=== PATIENT | female | born 1940 | race Caucasian/White ===

== ENCOUNTER 2016-09-27 19:03 | Inpatient (IN) | payer MEDICARE ==
[~2016-09-27] VITALS: Ht 160 cm; Wt 58.1 kg
[2016-09-27 19:33] LABS: BASOPHILS % (AUTO) 0.7 % (0.0-2.0); EOSINOPHILS # (AUTO) 0.2 /CMM (0.0-0.7); EOSINOPHILS % (AUTO) 3.1 % (0.0-6.0); HEMATOCRIT 42 % (33-45); LYMPHOCYTES # (AUTO) 2.6 /CMM (0.8-4.8); LYMPHOCYTES % (AUTO) 40.6 % (20.0-44.0); MEAN CORPUSCULAR HEMOGLOBIN 30 PG (26.0-33.0); MEAN CORPUSCULAR HGB CONC 34 g/dl (31.0-36.0); MEAN CORPUSCULAR VOLUME 89 fL (82-100); MONOCYTES # (AUTO) 0.6 /CMM (0.1-1.30); MONOCYTES % (AUTO) 8.9 % (2.0-12.0); NEUTROPHILS % (AUTO) 46.7 % (43.0-81.0); PLATELET COUNT (AUTO) 347 /CMM (150-450); RDW COEFFICIENT OF VARIATION 12.4 (11.5-15.0); WHITE BLOOD COUNT (AUTO) 6.4 K/uL (4.3-11.0)
[2016-09-27 19:43] LABS: ALANINE AMINOTRANSFERASE 27 U/L (12-78); ALBUMIN 3.8 g/dL (3.4-5.0); ALCOHOL, BLOOD < 3 mg/dL (0-0); ALKALINE PHOSPHATASE 78 U/L (46-116); ASPARTATE AMINOTRANSFERASE 22 U/L (15-37); BILIRUBIN,DIRECT 0.1 mg/dL (0.0-0.2); BILIRUBIN,TOTAL 0.3 mg/dL (0.2-1.0); CALCIUM, SERUM 9.1 mg/dL (8.5-10.1); CARBON DIOXIDE 30 mmol/L (21-32); CHLORIDE 104 mmol/L (98-107); CREATININE 0.8 mg/dL (0.6-1.3); GLUCOSE 118 mg/dL (74-106); POTASSIUM 3.8 mmol/L (3.5-5.1); SALICYLATE 2.9 mg/dL (2.8-20.0); SODIUM SERUM 139 mmol/L (136-145); TOTAL PROTEIN, SERUM 7.4 g/dL (6.4-8.2); UREA NITROGEN, BLOOD 22 mg/dL (7-18)
[2016-09-27 20:13] LABS: ACETAMINOPHEN 0 ug/ml (10-30)
[2016-09-27 20:31] LABS: APPEARANCE,URINE Clear (CLEAR); BILIRUBIN,URINE SMALL (NEGATIVE); BLOOD, URINE Negative Ery/uL (NEGATIVE); COLOR,URINE Yellow (YELLOW); KETONES,URINE Trace (NEGATIVE); LEUKOCYTE ESTERASE ,URINE Negative (NEGATIVE); NITRITE, URINE Negative (NEGATIVE); PROTEIN,URINE 30 mg/dl (NEGATIVE); UGLUCOSE Negative (NEGATIVE); UROBILINOGEN,URINE 0.2 EU/dL (0.2)
[2016-09-27 21:32] LABS: RBC,URINE 0-2 /HPF (0-2)
[2016-09-27 21:33] LABS: BACTERIA,URINE Few /HPF (None Seen); MUCUS,URINE Moderate /LPF (None Seen); SQUAMOUS EPITHELIAL CELL,UR Few /HPF (None Seen); URINE AMORPHOUS URATE Moderate /HPF (None Seen); WBC,URINE 2-3/HPF /HPF (0-3)
[2016-09-27] MEDS ORDERED: MAGNESIUM HYDROXIDE 30 ML UDC PO PRN (23:00)
[2016-09-27] MEDS ORDERED: MAG HYDROX/AL HYDROX/SIMETH 30 ML UDC PO PRN (23:00)
[2016-09-27] MEDS ORDERED: clonazePAM 0.5 MG TABLET PO PRN (23:00)
[2016-09-27] MEDS ORDERED: HYDR-3028 (23:56)
[2016-09-27] MEDS ORDERED: AMLO10TA4 (23:56)
[2016-09-27] MEDS ORDERED: PANT40TA4 (23:56)
[2016-09-27] MEDS ORDERED: ONDA-25 (23:56)
[2016-09-27] MEDS ORDERED: METO25TA6 (23:56)
[2016-09-27] MEDS ORDERED: HYDR50CA5 (23:56)
[2016-09-27] MEDS ORDERED: AMLO5TAB2 (23:56)
[2016-09-27] MEDS ORDERED: AMLO10TA2 (23:56)
[2016-09-27] MEDS ORDERED: ACET1TAB25 (23:56)
[2016-09-28] MEDS ORDERED: BUDE10.2 INH (00:06)
[2016-09-28] MEDS ORDERED: AMOX1TAB16 (00:06)
[2016-09-28] MEDS ORDERED: P-EP-92 PO (00:06)
[2016-09-28] MEDS ORDERED: ONDANSETRON 4 MG TAB.RAPDIS PO PRN (00:30)
[2016-09-28 02:27] VITALS: BP 114/56
[2016-09-28 07:26] LABS: CREATININE 0.6 mg/dL (0.6-1.3)
[2016-09-28 07:31] LABS: CHOLESTEROL 240 mg/dL (<200); HDL CHOLESTEROL 54 mg/dL (40-60); LDL 164 mg/dL (0-99); TRIGLYCERIDES 62 mg/dL (30-150)
[2016-09-28 08:12] VITALS: BP 128/73
[2016-09-28] MEDS: METOPROLOL TARTRATE 25 MG TABLET PO SCH ×2 (08:52→17:00)
[2016-09-28] MEDS: AMLODIPINE BESYLATE 10 MG TABLET PO SCH (08:52)
[2016-09-28] MEDS: PANTOPRAZOLE 40 MG TABLET.DR PO SCH (08:55)
[2016-09-28] MEDS: ACETAMINOPHEN 325 MG TABLET PO PRN (08:57)
[2016-09-28] MEDS ORDERED: Medication Not On Formulary EA (Budesonide/Formoterol Fumarate (Symbicort 160-4.5 Mcg In INH SCH (09:00)
[2016-09-28] MEDS: ACETAMINOPHEN W/ CODEINE#3 1 EA TABLET PO PRN ×2 (13:57→22:35)
[2016-09-28 15:43] VITALS: BP 119/55
[2016-09-28 20:00] VITALS: BP 134/61
[2016-09-28 20:17] VITALS: BP 134/61
[2016-09-28] MEDS: FLUTICASONE/SALMETEROL 1 DISK IH SCH (21:26)
[2016-09-28] MEDS: ARIPIPRAZOLE 5 MG TABLET PO SCH ×2 (21:26→21:30)
[2016-09-29] MEDS: ACETAMINOPHEN 325 MG TABLET PO PRN (03:39)
[2016-09-29] MEDS: ACETAMINOPHEN W/ CODEINE#3 1 EA TABLET PO PRN ×2 (05:14→14:40)
[2016-09-29 08:17] VITALS: BP 139/71
[2016-09-29] MEDS: AMLODIPINE BESYLATE 10 MG TABLET PO SCH (08:34)
[2016-09-29] MEDS: METOPROLOL TARTRATE 25 MG TABLET PO SCH ×2 (08:34→16:09)
[2016-09-29] MEDS: PANTOPRAZOLE 40 MG TABLET.DR PO SCH (08:34)
[2016-09-29] MEDS: FLUTICASONE/SALMETEROL 1 DISK IH SCH ×2 (08:35→20:44)
[2016-09-29 15:32] VITALS: BP 124/53
[2016-09-29 20:00] VITALS: BP 114/63
[2016-09-29] MEDS: hydrOXYzine PAMOATE 25 MG CAPSULE PO PRN (20:49)
[2016-09-29] MEDS: ARIPIPRAZOLE 5 MG TABLET PO SCH (20:50)
[2016-09-30] MEDS: ACETAMINOPHEN W/ CODEINE#3 1 EA TABLET PO PRN ×2 (01:47→17:38)
[2016-09-30 08:08] VITALS: BP 110/62
[2016-09-30] MEDS: PANTOPRAZOLE 40 MG TABLET.DR PO SCH (08:52)
[2016-09-30] MEDS: AMLODIPINE BESYLATE 10 MG TABLET PO SCH (08:53)
[2016-09-30] MEDS: METOPROLOL TARTRATE 25 MG TABLET PO SCH ×2 (08:53→17:00)
[2016-09-30] MEDS: FLUTICASONE/SALMETEROL 1 DISK IH SCH ×2 (09:16→21:12)
[2016-09-30 16:16] VITALS: BP 102/57
[2016-09-30 20:00] VITALS: BP 120/57
[2016-09-30] MEDS: hydrOXYzine PAMOATE 25 MG CAPSULE PO PRN (21:17)
[2016-09-30] MEDS: ARIPIPRAZOLE 5 MG TABLET PO SCH (21:19)
[2016-10-01 08:00] VITALS: BP 131/58
[2016-10-01] MEDS: PANTOPRAZOLE 40 MG TABLET.DR PO SCH (08:12)
[2016-10-01] MEDS: FLUTICASONE/SALMETEROL 1 DISK IH SCH ×2 (08:14→21:24)
[2016-10-01] MEDS: ACETAMINOPHEN W/ CODEINE#3 1 EA TABLET PO PRN ×2 (09:38→16:51)
[2016-10-01] MEDS: AMLODIPINE BESYLATE 10 MG TABLET PO SCH (09:49)
[2016-10-01] MEDS: METOPROLOL TARTRATE 25 MG TABLET PO SCH ×2 (09:49→17:33)
[2016-10-01 16:00] VITALS: BP 147/66
[2016-10-01 20:23] VITALS: BP 128/50
[2016-10-01] MEDS: ARIPIPRAZOLE 5 MG TABLET PO SCH (21:24)
[2016-10-01] MEDS: hydrOXYzine PAMOATE 25 MG CAPSULE PO PRN (21:29)
[2016-10-02] MEDS: ACETAMINOPHEN W/ CODEINE#3 1 EA TABLET PO PRN ×4 (03:23→23:17)
[2016-10-02 08:00] VITALS: BP 126/50
[2016-10-02] MEDS: PANTOPRAZOLE 40 MG TABLET.DR PO SCH (08:30)
[2016-10-02] MEDS: AMLODIPINE BESYLATE 10 MG TABLET PO SCH (08:30)
[2016-10-02] MEDS: METOPROLOL TARTRATE 25 MG TABLET PO SCH ×2 (08:31→16:34)
[2016-10-02] MEDS: FLUTICASONE/SALMETEROL 1 DISK IH SCH ×2 (08:35→21:31)
[2016-10-02 16:00] VITALS: BP 120/56
[2016-10-02 20:00] VITALS: BP 121/62
[2016-10-02 21:00] VITALS: BP 128/66
[2016-10-02] MEDS ORDERED: ARIPIPRAZOLE 5 MG TABLET PO SCH (22:00)
[2016-10-03] MEDS: TEMAZEPAM 7.5 MG CAPSULE PO PRN (01:25)
[2016-10-03] MEDS: hydrOXYzine PAMOATE 25 MG CAPSULE PO PRN ×2 (07:05→21:34)
[2016-10-03 08:00] VITALS: BP 122/60
[2016-10-03] MEDS: PANTOPRAZOLE 40 MG TABLET.DR PO SCH (08:42)
[2016-10-03] MEDS: AMLODIPINE BESYLATE 10 MG TABLET PO SCH (08:45)
[2016-10-03] MEDS: METOPROLOL TARTRATE 25 MG TABLET PO SCH ×2 (08:45→17:00)
[2016-10-03] MEDS: FLUTICASONE/SALMETEROL 1 DISK IH SCH ×2 (08:48→21:28)
[2016-10-03] MEDS: ACETAMINOPHEN W/ CODEINE#3 1 EA TABLET PO PRN ×2 (12:46→18:54)
[2016-10-03 15:48] LABS: CALCIUM, SERUM 9.1 mg/dL (8.5-10.1); CARBON DIOXIDE 29 mmol/L (21-32); CHLORIDE 103 mmol/L (98-107); CREATININE 0.7 mg/dL (0.6-1.3); GLUCOSE 109 mg/dL (74-106); POTASSIUM 4.4 mmol/L (3.5-5.1); SODIUM SERUM 139 mmol/L (136-145); UREA NITROGEN, BLOOD 21 mg/dL (7-18)
[2016-10-03 15:57] LABS: BASOPHILS % (AUTO) 0.4 % (0.0-2.0); EOSINOPHILS # (AUTO) 0.2 /CMM (0.0-0.7); EOSINOPHILS % (AUTO) 3.5 % (0.0-6.0); HEMATOCRIT 41 % (33-45); HEMOGLOBIN 13.8 g/dL (11.5-14.8); LYMPHOCYTES # (AUTO) 1.8 /CMM (0.8-4.8); MEAN CORPUSCULAR HEMOGLOBIN 31 PG (26.0-33.0); MEAN CORPUSCULAR HGB CONC 34 g/dl (31.0-36.0); MEAN CORPUSCULAR VOLUME 90 fL (82-100); MONOCYTES # (AUTO) 0.6 /CMM (0.1-1.30); MONOCYTES % (AUTO) 8.8 % (2.0-12.0); NEUTROPHILS # (AUTO) 3.8 /CMM (1.8-8.9); NEUTROPHILS % (AUTO) 59.3 % (43.0-81.0); PLATELET COUNT (AUTO) 382 /CMM (150-450); RDW COEFFICIENT OF VARIATION 13.7 (11.5-15.0); RED BLOOD CELL COUNT(AUTO) 4.51 MIL/uL (4.0-5.2); WHITE BLOOD COUNT (AUTO) 6.4 K/uL (4.3-11.0)
[2016-10-03 16:00] VITALS: BP 105/50
[2016-10-03 17:26] LABS: APPEARANCE,URINE CLEAR (CLEAR); BILIRUBIN,URINE NEGATIVE (NEGATIVE); BLOOD, URINE NEGATIVE Ery/uL (NEGATIVE); COLOR,URINE YELLOW (YELLOW); KETONES,URINE NEGATIVE (NEGATIVE); LEUKOCYTE ESTERASE ,URINE NEGATIVE (NEGATIVE); NITRITE, URINE NEGATIVE (NEGATIVE); PROTEIN,URINE NEGATIVE (NEGATIVE); UGLUCOSE NEGATIVE (NEGATIVE); UROBILINOGEN,URINE 0.2 EU/dL (0.2)
[2016-10-03 21:02] VITALS: BP 129/58
[2016-10-03] MEDS ORDERED: ARIPIPRAZOLE 5 MG TABLET PO SCH (22:00)
[2016-10-04] MEDS: TEMAZEPAM 7.5 MG CAPSULE PO PRN (02:37)
[2016-10-04] MEDS: ACETAMINOPHEN W/ CODEINE#3 1 EA TABLET PO PRN ×2 (04:07→10:34)
[2016-10-04 08:00] VITALS: BP 139/76
[2016-10-04] MEDS: PANTOPRAZOLE 40 MG TABLET.DR PO SCH (08:17)
[2016-10-04 08:18] VITALS: BP 139/76
[2016-10-04] MEDS: METOPROLOL TARTRATE 25 MG TABLET PO SCH (08:18)
[2016-10-04] MEDS: AMLODIPINE BESYLATE 10 MG TABLET PO SCH (08:18)
[2016-10-04] MEDS: FLUTICASONE/SALMETEROL 1 DISK IH SCH (08:20)
[2016-10-04] MEDS ORDERED: ARIPIPRAZOLE 5 MG TABLET PO SCH (22:00)
== END 2016-10-04 14:15 | DRG 885 ==
LOC: ER 19:07 → GPS 22:02
PROVIDERS: ADMIT Psychiatry & Neurology Psychiatry; ATTEND Family Medicine
DX: F29 Unspecified psychosis not due to a substance or known physiological condition (principal); E78.5 Hyperlipidemia, unspecified; I10 Essential (primary) hypertension; J44.9 Chronic obstructive pulmonary disease, unspecified; Z73.6 Limitation of activities due to disability; M06.9 Rheumatoid arthritis, unspecified; Z86.19 Personal history of other infectious and parasitic diseases
CPT/HCPCS: 36415; 80048-TC; 80061-TC; 80076-TC; 80305; 81000-TC; 82565-TC; 82962-TC; 85025-TC; 85652-TC; 87081-TC; A4606; G0480; Q0177; Z7610

== ENCOUNTER 2016-10-10 14:23 | Inpatient (IN) | payer MEDICARE ==
[~2016-10-10] VITALS: Ht 172.7 cm; Wt 54.4 kg
[~2016-10-10 14:23] MED LIST: ACET1TAB25; AMLO10TA2 PO; AMOX1TAB16; BUDE10.2 INH; HYDR-3028; METO25TA6 PO; ONDA-25; P-EP-92 PO; PANT40TA4
--- NOTE | 2016-10-10 14:38 | NUR ---
PT BIB PA FOR MED CLEARANCE. ON 515 HOLD FOR GD. DENIES PHYSICAL COMPLAINT. AMBULATORY WITH WALKER WHICH IS BASELINE. NAD NOTED. RESP EVEN UNLABORED. IN ER BED 14.
[2016-10-10 14:51] LABS: BASOPHILS # (AUTO) 0.1 /CMM (0.0-0.2); BASOPHILS % (AUTO) 1.1 % (0.0-2.0); EOSINOPHILS # (AUTO) 0.3 /CMM (0.0-0.7); EOSINOPHILS % (AUTO) 4.1 % (0.0-6.0); HEMATOCRIT 40 % (33-45); HEMOGLOBIN 13.6 g/dL (11.5-14.8); LYMPHOCYTES # (AUTO) 1.9 /CMM (0.8-4.8); LYMPHOCYTES % (AUTO) 26.7 % (20.0-44.0); MEAN CORPUSCULAR HEMOGLOBIN 30 PG (26.0-33.0); MEAN CORPUSCULAR HGB CONC 34 g/dl (31.0-36.0); MEAN CORPUSCULAR VOLUME 90 fL (82-100); MONOCYTES # (AUTO) 0.6 /CMM (0.1-1.30); MONOCYTES % (AUTO) 8.6 % (2.0-12.0); NEUTROPHILS # (AUTO) 4.2 /CMM (1.8-8.9); NEUTROPHILS % (AUTO) 59.5 % (43.0-81.0); PLATELET COUNT (AUTO) 399 /CMM (150-450); RDW COEFFICIENT OF VARIATION 12.3 (11.5-15.0); RED BLOOD CELL COUNT(AUTO) 4.46 MIL/uL (4.0-5.2); WHITE BLOOD COUNT (AUTO) 7.1 K/uL (4.3-11.0)
[2016-10-10 15:03] LABS: CALCIUM, SERUM 9.1 mg/dL (8.5-10.1); CARBON DIOXIDE 30 mmol/L (21-32); CHLORIDE 107 mmol/L (98-107); CREATININE 0.7 mg/dL (0.6-1.3); GLUCOSE 131 mg/dL (74-106); SODIUM SERUM 144 mmol/L (136-145); UREA NITROGEN, BLOOD 27 mg/dL (7-18)
[2016-10-10 15:08] LABS: ALANINE AMINOTRANSFERASE 24 U/L (12-78); ALBUMIN 3.7 g/dL (3.4-5.0); ALKALINE PHOSPHATASE 78 U/L (46-116); ASPARTATE AMINOTRANSFERASE 16 U/L (15-37); BILIRUBIN,DIRECT 0.1 mg/dL (0.0-0.2); BILIRUBIN,TOTAL 0.3 mg/dL (0.2-1.0); TOTAL PROTEIN, SERUM 7.2 g/dL (6.4-8.2)
[2016-10-10 15:09] LABS: ACETAMINOPHEN 0 ug/ml (10-30); ALCOHOL, BLOOD < 3 mg/dL (0-0); SALICYLATE 2.5 mg/dL (2.8-20.0)
[2016-10-10 16:04] LABS: APPEARANCE,URINE CLEAR (CLEAR); BILIRUBIN,URINE NEGATIVE (NEGATIVE); BLOOD, URINE NEGATIVE Ery/uL (NEGATIVE); COLOR,URINE YELLOW (YELLOW); KETONES,URINE NEGATIVE (NEGATIVE); LEUKOCYTE ESTERASE ,URINE NEGATIVE (NEGATIVE); NITRITE, URINE NEGATIVE (NEGATIVE); PROTEIN,URINE NEGATIVE (NEGATIVE); UGLUCOSE NEGATIVE (NEGATIVE); UROBILINOGEN,URINE 0.2 EU/dL (0.2)
--- NOTE | 2016-10-10 16:09 | NUR ---
RESTING QUIETLY, NAD NOTED. ALL NEEDS ATTENDED TO.
--- NOTE | 2016-10-10 16:17 | NUR ---
REPORT GIVEN TO PHIL COLIN FOR ADMISSION TO [facility]
[2016-10-10] MEDS ORDERED: ACET1TAB12 PO (17:04)
[2016-10-10] MEDS ORDERED: ACET-868 PO (17:04)
[2016-10-10] MEDS ORDERED: ARIP15TA2 PO (17:04)
[2016-10-10] MEDS ORDERED: FLUT1DIS3 INH (17:04)
[2016-10-10] MEDS ORDERED: ONDA4TAB8 PO (17:04)
[2016-10-10] MEDS ORDERED: MAG30ORA PO (17:04)
[2016-10-10] MEDS ORDERED: TEMA15CA5 PO (17:04)
[2016-10-10] MEDS ORDERED: HYDR50CA PO (17:04)
[2016-10-10] MEDS ORDERED: CLON0.5T PO (17:04)
--- NOTE | 2016-10-10 17:15 | NUR ---
PT TRANSPORTED TO [facility] IN STABLE CONDITION
--- NOTE | 2016-10-10 17:32 | NUR ---
RN-CO: DR MILTON WAS PAGED TO OBTAIN ADMITTING ORDERS. AWAITING TO CALL BACK.
--- NOTE | 2016-10-10 17:33 | NUR ---
RN-CO: DR MILTON CALLED BACK, ROUTINE ORDERS FOR THE PATIENT, NOTED.
--- NOTE | 2016-10-10 17:45 | NUR ---
DESK REPRESENTATIVE-NOTES RECEIVED 76 Y.O FEMALE PATIENT FROM ER. PATIENT ALERT ORIENTED X4 AMBULATORY. PATIENT IS UNDER DR. MILTON AND DR. ROCK. CECELIA LOMBARDI. WILL ENDORSE TO EYELET ROW MARKER FOR CONTINUITY OF CARE AND ADMISSION PROCESS.
[2016-10-10] MEDS ORDERED: TEMAZEPAM 7.5 MG CAPSULE PO PRN (18:00)
[2016-10-10] MEDS ORDERED: ACETAMINOPHEN 325 MG TABLET PO PRN ×2 (18:00→21:30)
[2016-10-10] MEDS ORDERED: MAGNESIUM HYDROXIDE 30 ML UDC PO PRN (18:00)
[2016-10-10] MEDS ORDERED: MAG HYDROX/AL HYDROX/SIMETH 30 ML UDC PO PRN (18:00)
[2016-10-10] MEDS ORDERED: LORAZEPAM 0.5 MG TABLET PO PRN (18:00)
--- NOTE | 2016-10-10 19:00 | NUR ---
[facility] RN ADMITTING NOTES: PATIENT INITIALLY CAME TO THE UNIT DURING THE DAY SHIFT. ADMISSION PROCESS CONTINUED BY LICENSED REAL ESTATE BROKER. PATIENT IS ADMITTED ON A 5150 HOLD FOR GD. PER HOLD THE PATIENT WAS OBSERVED. TO BE OUTSIDE HER FACILITY WITH ALL HER BELONGINGS, REFUSED TO SLEEP AT FACILITY BECAUSE "BLACK MEN ON STREET DRUGS COME TO HURT WOMEN AT NIGHT" IT IS ALSO STATED IN THE HOLD THAT CLIENT REPORTED DELUSIONAL AND PSYCHOTIC BELIEFS REGARDING THE CARE SHE IS GIVEN. CLIENT IS SLEEPING OUTSIDE, REFUSING HELP AND UNABLE TO CARE FOR HERSELF." UPON FACE TO FACE ASSESSMENT, PATIENT MEETS CRITERIA FOR HOLD. SHE APPEARS TO BE UNKEMPT, UNTIDY, DISORGANIZED, ALERT AND ORIENTED X2-3,IN NO APPARENT RESPIRATORY DISTRESS DURING THE ASSESSMENT. PATIENT INITIALLY COMPLAINED OF PAIN ON HER FOOT, BACK AND NECK. SHE IS ABLE TO AMBULATE USING THE WALKER. MRSA WAS DONE BY DAY SHIFT NURSE ASSIGNED. BELONGINGS AND CONTRABAND WERE CHECKED BY DAY SHIFT PARACHUTE ACCESSORIES ATTACHER'S WELL. SKIN AND BODY ASSESSMENT CHECKED, PICTURES TAKEN AND PLACED IN THE CHART. ADVISEMENT PROVIDED TO PATIENT. PATIENT HAS BEEN ADMITTED HERE IN THE PAST WEEK, RE-ORIENTATION TO THE UNIT, STAFF AND CARE PLAN DONE. MEDICATION RECONCILIATION DONE BY DR. CHOUDHARY. PAIN MEDICATION GIVEN ORDERED. PATIENT ALSO SEEN BY DR. MILTON DURING EVENING ROUNDS. 2200- PATIENT REFUSED HER NEW MEDICATION-ABILIFY. PATIENT STATED, SHE DOES NOT LIKE THE EFFECT OF THE MEDICATION ON HERSELF. SHE ADDED THAT SHE WILL INFORM THE DOCTOR ABOUT IT. WILL ALSO INFORM THE DAY SHIFT NURSE. PATIENT WILL BE UNDER THE SERVICE OF DR. ANDERSON AND [facility]. Q15 MIN CHECKS INITIATED. CARE PLAN SPECIFIC FOR PATIENT INITIATED. NOTIFICATION TO FAMILY/NEXT OF KIN NOT DONE THERE IS NONE GIVEN. WILL MONITOR PATIENT FOR MOOD, SAFETY AND BEHAVIOR. WILL ENDORSE PATIENT TO DAY SHIFT NURSE FOR CONTINUITY OF CARE.
[2016-10-10 21:11] VITALS: BP 132/72
[2016-10-10] MEDS ORDERED: hydrOXYzine PAMOATE 25 MG CAPSULE ONE (21:25)
[2016-10-10] MEDS ORDERED: ACETAMINOPHEN W/ CODEINE#3 1 EA TABLET ONE (21:25)
[2016-10-10] MEDS ORDERED: hydrOXYzine PAMOATE 50 MG CAPSULE PO PRN (21:30)
[2016-10-10] MEDS ORDERED: ONDANSETRON 4 MG TAB.RAPDIS PO PRN (21:30)
[2016-10-10] MEDS ORDERED: MAG HYDROX/AL HYDROX/SIMETH 30 ML UDC PO SCH (21:30)
[2016-10-10] MEDS ORDERED: ACETAMINOPHEN W/ CODEINE#3 1 EA TABLET PO SCH (21:30)
[2016-10-10] MEDS: ARIPIPRAZOLE 5 MG TABLET PO SCH (22:00)
[2016-10-11] MEDS ORDERED: ACETAMINOPHEN W/ CODEINE#3 1 EA TABLET ONE (06:08)
[2016-10-11] MEDS: ACETAMINOPHEN W/ CODEINE#3 1 EA TABLET PO PRN ×2 (06:25→15:38)
[2016-10-11 08:02] LABS: ALANINE AMINOTRANSFERASE 24 U/L (12-78); ALBUMIN 3.6 g/dL (3.4-5.0); ALKALINE PHOSPHATASE 78 U/L (46-116); ASPARTATE AMINOTRANSFERASE 17 U/L (15-37); BILIRUBIN,TOTAL 0.4 mg/dL (0.2-1.0); CALCIUM, SERUM 8.9 mg/dL (8.5-10.1); CARBON DIOXIDE 32 mmol/L (21-32); CHLORIDE 107 mmol/L (98-107); CREATININE 0.6 mg/dL (0.6-1.3); GLUCOSE 94 mg/dL (74-106); POTASSIUM 4.1 mmol/L (3.5-5.1); SODIUM SERUM 144 mmol/L (136-145); TOTAL PROTEIN, SERUM 7.3 g/dL (6.4-8.2); UREA NITROGEN, BLOOD 20 mg/dL (7-18)
[2016-10-11 08:04] VITALS: BP 123/51
[2016-10-11 08:10] LABS: CHOLESTEROL 252 mg/dL (<200); HDL CHOLESTEROL 50 mg/dL (40-60); LDL 160 mg/dL (0-99); TRIGLYCERIDES 165 mg/dL (30-150)
[2016-10-11] MEDS: METOPROLOL TARTRATE 25 MG TABLET PO SCH ×2 (08:42→17:19)
[2016-10-11] MEDS: AMLODIPINE BESYLATE 10 MG TABLET PO SCH (08:43)
[2016-10-11] MEDS ORDERED: hydrOXYzine PAMOATE 50 MG CAPSULE PO PRN (09:00)
[2016-10-11] MEDS: FLUTICASONE/VILANTEROL 1 EACH BLST.W.DEV IH SCH (09:14)
--- NOTE | 2016-10-11 12:23 | NUR ---
I have reviewed this patients psychosocial dated 09/29/16 and I can attest to the accuracy of the information therein. There have been no changes since her last assessment. Patient is oriented to time, place, self, and situation. Pt. is still hyperverbal and has paranoid delusions. Patient's mood and affect are anxious. Patient is refusing some medications. Pt's. insight and judgement are poor. Pt. denies visual/ auditory hallucinations. Pt. denies suicidal/homicidal ideations. Discharge Plan: Patient was residing at [facility] ([address] [place] [id number] ). Prior to that patient was at an [facility] located at [address] [place] [address]. Patient had stated that she did not want to return and was given an alternative placement. Currently patient wants an independent living. Patient does not have any contacts. welfare worker will help form a safe and proper discharge. welfare worker will provide Pt. with substance abuse referrals and referrals for smoking cessation upon discharge. Addendum: 10/11/16 at 1439 by HUGO GUTIÉRREZ welfare worker completed substance abuse form due to patient's tox report showing patient tested positive for opiates.
[2016-10-11] MEDS: HYDROCODONE/APAP 5/325MG 1 EACH TABLET PO PRN (12:53)
--- NOTE | 2016-10-11 12:53 | NUR ---
ADMINISTERED NARCO 5/325 MG PO PRN FOR CHRONIC GENERALIZED PAIN 12/31, V/S TAKEN BP-123/63, P-69, PER PATIENT REQUEST, ENCOURAGED TO INCREASE FLUID INTAKE. CONTINUED MONITORING.
--- NOTE | 2016-10-11 15:38 | NUR ---
ADMINISTERED TYLENOL COD. #3 ON TAB FOR CHRONIC GENERALIZED PAIN 01/30, PER PATIENT REQUEST, V/S TAKEN, BP -125/58, P-76, CONTINUED MONITORING.
[2016-10-11 16:09] VITALS: BP 130/70
[2016-10-11] MEDS: hydrOXYzine PAMOATE 25 MG CAPSULE PO PRN (21:34)
[2016-10-11] MEDS: ARIPIPRAZOLE 5 MG TABLET PO SCH (21:35)
--- NOTE | 2016-10-11 21:36 | NUR ---
GPS RN NOTE: PATIENT REFUSED ABILIFY, EXPLAINED THE RISK AND BENEFITS, PATIENT STILL REFUSED, OFFERED X 3 ATTEMPT, PATIENT STILL REFUSED. PATIENT STATED " I REFUSED, IF I TAKE THAT, I GET NAUSEOUS" WILL CONTINUE TO MONITOR [id number] FOR SAFETY
[2016-10-12] MEDS: ACETAMINOPHEN W/ CODEINE#3 1 EA TABLET PO PRN ×3 (00:21→21:14)
[2016-10-12 08:00] VITALS: BP 147/77
[2016-10-12] MEDS: AMLODIPINE BESYLATE 10 MG TABLET PO SCH (08:21)
[2016-10-12] MEDS: FLUTICASONE/VILANTEROL 1 EACH BLST.W.DEV IH SCH (08:23)
[2016-10-12] MEDS: METOPROLOL TARTRATE 25 MG TABLET PO SCH ×2 (08:23→16:56)
[2016-10-12] MEDS: DOCUSATE SODIUM 100 MG CAPSULE PO SCH ×2 (11:10→16:55)
[2016-10-12 16:00] VITALS: BP 144/64
[2016-10-12 20:00] VITALS: BP 134/59
[2016-10-12] MEDS: ARIPIPRAZOLE 5 MG TABLET PO SCH (21:10)
[2016-10-12] MEDS: SENNOSIDES 8.6 MG TABLET PO SCH (21:15)
[2016-10-12] MEDS: hydrOXYzine PAMOATE 25 MG CAPSULE PO PRN (21:16)
[2016-10-13] MEDS: ACETAMINOPHEN W/ CODEINE#3 1 EA TABLET PO PRN ×3 (05:42→22:51)
[2016-10-13 08:00] VITALS: BP 136/59
[2016-10-13] MEDS: AMLODIPINE BESYLATE 10 MG TABLET PO SCH (08:34)
[2016-10-13] MEDS: DOCUSATE SODIUM 100 MG CAPSULE PO SCH ×2 (08:35→16:31)
[2016-10-13] MEDS: METOPROLOL TARTRATE 25 MG TABLET PO SCH ×2 (08:35→16:30)
[2016-10-13] MEDS: FLUTICASONE/VILANTEROL 1 EACH BLST.W.DEV IH SCH (08:38)
--- NOTE | 2016-10-13 15:15 | NUR ---
Chantale from [facility] [address] [facility] [address] came to assess the patient at 2:30pm. face worker will follow-up.
--- NOTE | 2016-10-13 15:18 | NUR ---
quill worker spoke to Brenna Dick ([phone]) patient's clinical social sciences chair from [facility] in [address] [address]. Brenna stated that she has worked with the patient for a long time and is aware of her situation and the challenge it is finding her a placement. Brenna also confirmed that patient has a psychiatrist Dr. Micha Castro ([phone]) and she also has a psychologist Dr. Claudia Lloyd ([phone]). Brenna requested to be informed when patient is discharged so that patient may continue services with them. quill worker will follow-up.
[2016-10-13 18:53] VITALS: BP 138/68
[2016-10-13 20:00] VITALS: BP 133/62
[2016-10-13] MEDS: hydrOXYzine PAMOATE 25 MG CAPSULE PO PRN (21:17)
[2016-10-13] MEDS: SENNOSIDES 8.6 MG TABLET PO SCH (22:00)
[2016-10-13] MEDS ORDERED: ARIPIPRAZOLE 5 MG TABLET PO SCH (22:00)
--- NOTE | 2016-10-13 23:00 | NUR ---
GPS RN NOTES PATIENT REFUSED HS MEDS. ABILIFY AND JOSE. OFFERED MEDS. 3X. EXPLAINED BENEFITS OF MEDICATION, PATIENT STILL REFUSED.
[2016-10-14] MEDS: ACETAMINOPHEN W/ CODEINE#3 1 EA TABLET PO PRN ×2 (04:42→19:21)
[2016-10-14] MEDS: PANTOPRAZOLE 40 MG TABLET.DR PO SCH (07:37)
[2016-10-14 08:00] VITALS: BP 121/69
[2016-10-14] MEDS: FLUTICASONE/VILANTEROL 1 EACH BLST.W.DEV IH SCH (08:19)
[2016-10-14] MEDS: METOPROLOL TARTRATE 25 MG TABLET PO SCH ×2 (08:20→16:51)
[2016-10-14] MEDS: AMLODIPINE BESYLATE 10 MG TABLET PO SCH (08:20)
[2016-10-14] MEDS: DOCUSATE SODIUM 100 MG CAPSULE PO SCH ×2 (08:20→16:50)
[2016-10-14 16:27] VITALS: BP 138/64
--- NOTE | 2016-10-14 19:21 | NUR ---
GPS/RN NOTE: PATIENT UP TO THE NURSE'S STATION, COMPLAINING OF ACHY LOWER BACK PAIN, 7/10 ON PAIN SCALE, TYLENOL #3 1 TAB PO GIVEN.
[2016-10-14 20:00] VITALS: BP 123/62
[2016-10-14] MEDS: SENNOSIDES 8.6 MG TABLET PO SCH (21:10)
[2016-10-14] MEDS: QUETIAPINE FUMARATE 25 MG TABLET PO SCH (21:10)
--- NOTE | 2016-10-15 01:36 | NUR ---
GPS/RN NOTE: PATIENT STILL UP, OFFERED A SLEEPING PILL, SHE STATED, " I DON'T NEED ANY SLEEPING PILL, I TOOK ONE BEFORE AND IT MADE ME TURN AROUND."
[2016-10-15] MEDS: ACETAMINOPHEN W/ CODEINE#3 1 EA TABLET PO PRN ×3 (06:37→20:34)
--- NOTE | 2016-10-15 06:38 | NUR ---
GPS/RN NOTE: C/O LOWER BACK PAIN, 6/10 ON PAIN SCALE, TYLENOL #3 1 TAB PO GIVEN.
[2016-10-15] MEDS: PANTOPRAZOLE 40 MG TABLET.DR PO SCH (07:45)
[2016-10-15] MEDS: AMLODIPINE BESYLATE 10 MG TABLET PO SCH (08:20)
[2016-10-15] MEDS: DOCUSATE SODIUM 100 MG CAPSULE PO SCH ×2 (08:20→17:00)
[2016-10-15] MEDS: METOPROLOL TARTRATE 25 MG TABLET PO SCH ×2 (08:21→17:33)
[2016-10-15] MEDS: FLUTICASONE/VILANTEROL 1 EACH BLST.W.DEV IH SCH (08:30)
[2016-10-15 09:22] VITALS: BP 133/62
[2016-10-15] MEDS ORDERED: diphenhydrAMINE HCL 25 MG CAPSULE PO PRN (11:00)
--- NOTE | 2016-10-15 13:33 | NUR ---
administered tylenol cod #3 lower back pain 01/30, per patient request, v/s taken bp-132/ 7, p- 76, continued monitoring.
[2016-10-15 16:32] VITALS: BP 112/65
[2016-10-15 20:18] VITALS: BP 137/57
[2016-10-15 20:21] VITALS: BP 122/72
[2016-10-15] MEDS: QUETIAPINE FUMARATE 25 MG TABLET PO SCH (21:13)
[2016-10-15] MEDS: SENNOSIDES 8.6 MG TABLET PO SCH (21:14)
[2016-10-15] MEDS: hydrOXYzine PAMOATE 25 MG CAPSULE PO PRN (21:17)
--- NOTE | 2016-10-15 21:39 | NUR ---
Pt c/o generalized body pain 01/30 at 2033 hrs. Tyl. cod. #3 given as ordered. Effective. Post 1 hour [place] 05/02. Will continue to monitor. Frequent visual check done.
--- NOTE | 2016-10-15 22:39 | NUR ---
Pt c/o of itchiness at 2116 hrs. Vistaril 50 mg 2 caps/ po given. Effective. Post 1 hour no more itchiness and pt asleep in bed easy to arouse. Will continue to monitor.
[2016-10-16] MEDS: ACETAMINOPHEN W/ CODEINE#3 1 EA TABLET PO PRN ×2 (06:01→16:42)
--- NOTE | 2016-10-16 06:01 | NUR ---
GPS RN NOTE, PATIENT HAS A COMPLAINT OF LOWER BACK PAT 7 OUT 10 ON THE PAIN SCALE AND WOULD LIKE MEDICATION AT THIS TIME. PATIENT VITAL SIGNS ARE STABLE. GAVE TYLENOL #3 PO Q6HR PRN ORDERED. WILL REASSESS PAIN AND I WILL CONTINUE TO MONITOR THIS PATIENT.
--- NOTE | 2016-10-16 07:02 | NUR ---
Pain reassessment. DE post 1 hour at /10. Pain med is effective. Will continue to monitor and will endorse to next shift.
[2016-10-16] MEDS: PANTOPRAZOLE 40 MG TABLET.DR PO SCH (07:44)
[2016-10-16] MEDS: AMLODIPINE BESYLATE 10 MG TABLET PO SCH (07:54)
[2016-10-16] MEDS: DOCUSATE SODIUM 100 MG CAPSULE PO SCH ×2 (07:54→16:30)
[2016-10-16] MEDS: FLUTICASONE/VILANTEROL 1 EACH BLST.W.DEV IH SCH (07:55)
[2016-10-16 08:00] VITALS: BP 112/58
[2016-10-16] MEDS: METOPROLOL TARTRATE 25 MG TABLET PO SCH ×2 (10:30→16:31)
--- NOTE | 2016-10-16 14:51 | NUR ---
dope maintenance worker spoke to patient regarding placement, patient has been accepted to [facility] [address] [facility] [address] ([phone]). Upon speaking to patient in the morning she was agreeable to be discharged to [facility]. In the afternoon child protective services social worker spoke to patient once again regarding placement and patient was refusing placement at this time and stated, "The [facility] is willing to take me and I will go live with his mother." dope maintenance worker will follow-up with patient regarding placement.
[2016-10-16 16:00] VITALS: BP 140/65
--- NOTE | 2016-10-16 16:42 | NUR ---
administered tylenol cod #3 for chronic generalized pain, v/s taken bp-118/73, p-73, per patient request, continued monitoring.
[2016-10-16 20:26] VITALS: BP 143/63
[2016-10-16] MEDS: SENNOSIDES 8.6 MG TABLET PO SCH (21:24)
[2016-10-16] MEDS: hydrOXYzine PAMOATE 25 MG CAPSULE PO PRN (21:37)
[2016-10-16] MEDS ORDERED: QUETIAPINE FUMARATE 25 MG TABLET PO SCH (22:00)
[2016-10-17] MEDS: ACETAMINOPHEN W/ CODEINE#3 1 EA TABLET PO PRN ×4 (01:47→20:43)
[2016-10-17 08:00] VITALS: BP 126/70
[2016-10-17] MEDS: HYDROCODONE/APAP 5/325MG 1 EACH TABLET PO PRN (08:01)
[2016-10-17] MEDS: DOCUSATE SODIUM 100 MG CAPSULE PO SCH ×2 (08:02→16:48)
[2016-10-17] MEDS: METOPROLOL TARTRATE 25 MG TABLET PO SCH ×2 (08:02→16:48)
[2016-10-17] MEDS: PANTOPRAZOLE 40 MG TABLET.DR PO SCH (08:02)
[2016-10-17] MEDS: AMLODIPINE BESYLATE 10 MG TABLET PO SCH (08:03)
[2016-10-17] MEDS: FLUTICASONE/VILANTEROL 1 EACH BLST.W.DEV IH SCH (08:47)
[2016-10-17] MEDS ORDERED: QUETIAPINE FUMARATE 25 MG TABLET PO SCH ×3 (09:00→22:00)
--- NOTE | 2016-10-17 14:43 | NUR ---
GPS/RN PATIENT REPORTS 01/30 HEADACHE, REQUESTED TYLENOL COD # 3, ADMINISTERED ORDERED, WILL CONTINUE TO MONITOR.
--- NOTE | 2016-10-17 15:18 | NUR ---
line up worker attempted to contact patient's social organization professor from [facility] in [place] ([phone]) However, she was unavailable. line up worker left a voicemail with her contact information and will attempt again later.
[2016-10-17 16:04] VITALS: BP 137/64
--- NOTE | 2016-10-17 16:10 | NUR ---
hired worker faxed initial review packet to [facility] (phone: [phone]/ fax: [phone]) [address] [place] [address]. Darryl Sheppard came to assess the patient at 2:45pm. hired worker will follow-up.
--- NOTE | 2016-10-17 16:12 | NUR ---
field worker spoke to patient's social secretary from [facility] [place] ([phone]) who stated that patient was previously living at [facility] [address] [place] [address] ([phone]). Brenna stated that she has been in contact with Tia ([phone]) from the facility who stated that if patient was willing to return she would take her back. field worker attempted to contact Tia ([phone]) from the facility however, she was unavailable. field worker was unable to leave a message as her voicemail was full. field worker will follow-up.
--- NOTE | 2016-10-17 18:12 | NUR ---
GPS/RN PATIENT REPORTS 01/30 HEADACHE, REQUESTED TYLENOL COD # 3, ADMINISTERED ORDERED, WILL CONTINUE TO MONITOR.
--- NOTE | 2016-10-17 19:30 | NUR ---
GPS RN NOTE, RECEIVED PATIENT AWAKE AND IN BED, PATIENT HAS A COMPLAINT OF GENERALIZED PAIN AT 6 OUT OF 10 ON THE PAIN SCALE. PATIENT IS TAKING ORAL PAIN MEDICATION FOR THIS PAIN. PATIENT IS DISPLAYING NO S/S OF APPARENT DISTRESS AT THIS TIME. PATIENT BREATHING IS UNLABORED WITH EQUAL RISE AND FALL OF THE CHEST. PATIENT IS ALERT AND ORIENTED X 3 ON ROOM AIR WITH A SPO2 96%. PATIENT NON-COMPLAINT WITH MEDICATION, ANXIOUS, COOPERATIVE, CONFUSED AT TIMES, DEMANDING, EASILY AGITATED, AND NEEDS REORIENTATION. PATIENT DENIES SUICIDE AND HOMICIDAL IDEATIONS AT THIS TIME. PATIENT ASSISTED WITH TURNING AND REPOSITIONING Q2HR AND PRN FOR COMFORT AND CIRCULATION. PATIENT HAS NO NEEDS AT THIS TIME. PATIENT EDUCATED ON THE USE OF THE CALL PANTOJA. PATIENT BED SIDE RAILS UP X2 FOR SAFETY, BED IS LOCKED AND LOW WILL CONTINUE TO MONITOR AND MAINTAIN SAFETY.
[2016-10-17 19:52] VITALS: BP 134/52
[2016-10-17] MEDS: hydrOXYzine PAMOATE 25 MG CAPSULE PO PRN (20:43)
--- NOTE | 2016-10-17 20:43 | NUR ---
GPS RN NOTE, PATIENT HAS A COMPLAINT OF HAVING GENERALIZED PAIN AT 7 OUT 10 ON THE PAIN SCALE AND WOULD LIKE MEDICATION AT THIS TIME. PATIENT VITAL SIGNS ARE STABLE. GAVE TYLENOL-COD #3 Q6HR PRN ORDERED. WILL REASSESS PAIN AND I WILL CONTINUE TO MONITOR THIS PATIENT.
--- NOTE | 2016-10-17 20:44 | NUR ---
GPS RN NOTE, PATIENT HAS A COMPLAINT OF ITCHING AND WOULD LIKE MEDICATION AT THIS TIME. PATIENT VITAL SIGNS ARE STABLE. GAVE VISTARIL 50MG PO Q12HR PRN ORDERED. WILL REASSESS FOR PRURITUS AND I WILL CONTINUE TO MONITOR THIS PATIENT.
[2016-10-17] MEDS: SENNOSIDES 8.6 MG TABLET PO SCH (21:30)
--- NOTE | 2016-10-17 21:30 | NUR ---
GPS RN NOTE, PATIENT REFUSED SENOKOT 17.2MG PO HS AND SEROQUEL 75MG 3 TABS PO HS. OFFERED AFOREMENTIONED MEDICATION THREE TIMES BUT STILL PATIENT REFUSED STATING," SENOKOT WILL GIVE ME DIARRHEA AND I ONLY TAKE ONE TAB OF SEROQUEL NOT THREE ". EDUCATED THE PATIENT ON THE RISK AND BENEFITS OF TAKING AND REFUSING SENOKOT OR SEROQUEL. WILL CONTINUE TO MONITOR THIS PATIENT.
[2016-10-18 01:29] LABS: APPEARANCE,URINE CLOUDY (CLEAR); BILIRUBIN,URINE NEGATIVE (NEGATIVE); BLOOD, URINE NEGATIVE Ery/uL (NEGATIVE); COLOR,URINE YELLOW (YELLOW); KETONES,URINE NEGATIVE (NEGATIVE); LEUKOCYTE ESTERASE ,URINE 1+ (NEGATIVE); NITRITE, URINE POSITIVE (NEGATIVE); PROTEIN,URINE NEGATIVE (NEGATIVE); UGLUCOSE NEGATIVE (NEGATIVE); UROBILINOGEN,URINE 0.2 EU/dL (0.2)
[2016-10-18 01:38] LABS: BACTERIA,URINE 3+ /HPF (None Seen); RBC,URINE 0-2 /HPF (0-2); SQUAMOUS EPITHELIAL CELL,UR Few /HPF (None Seen); WBC,URINE 21-50 /HPF (0-3)
[2016-10-18] MEDS: ACETAMINOPHEN W/ CODEINE#3 1 EA TABLET PO PRN ×3 (03:09→21:14)
[2016-10-18] MEDS: PANTOPRAZOLE 40 MG TABLET.DR PO SCH (07:47)
[2016-10-18 08:00] VITALS: BP 139/72
[2016-10-18] MEDS: DOCUSATE SODIUM 100 MG CAPSULE PO SCH ×2 (08:23→17:44)
[2016-10-18] MEDS: FLUTICASONE/VILANTEROL 1 EACH BLST.W.DEV IH SCH (08:23)
[2016-10-18] MEDS: AMLODIPINE BESYLATE 10 MG TABLET PO SCH (08:24)
[2016-10-18] MEDS: METOPROLOL TARTRATE 25 MG TABLET PO SCH ×2 (08:24→17:45)
[2016-10-18] MEDS ORDERED: QUETIAPINE FUMARATE 25 MG TABLET PO SCH (09:00)
--- NOTE | 2016-10-18 13:47 | NUR ---
fabric lay out worker spoke to Tia from [facility] [address] [place] [address] ([phone]) Who confirmed that patient can return upon discharge if the bed was still available.
--- NOTE | 2016-10-18 13:54 | NUR ---
field irrigation worker faxed initial review packet to [facility] (phone: [phone]) [address] [facility] [address]. field irrigation worker spoke to Chiara from the facility who stated that they could not accept the patient due to her behavior. Addendum: 10/19/16 at 1108 by HUGO LEGER SW [facility] did accept the patient. field irrigation worker also faxed initial review packet to [facility] [address] [place] [address]. ([phone]) and Chiara from the facility stated that they could not accept the patient due to her behavior.
--- NOTE | 2016-10-18 14:53 | NUR ---
ADMINISTERED TYLENOL COD #3 FOR CHRONIC GENERALIZED PAIN 12/31, PER PATIENT REQUEST, V/S TAKEN BP-135/76, P-69, CONTINUED MONITORING.
[2016-10-18 16:00] VITALS: BP 122/60
--- NOTE | 2016-10-18 16:16 | NUR ---
wire web worker spoke to patient regarding placement, patient has been accepted to [facility] [address] [facility] [address] ([phone]). wire web worker also spoke to Tia from [facility] [address] [place] [address] ([phone]) Who confirmed that patient can return upon discharge. Patient is refusing placement at this time and stated, "I would rather be discharged to the streets." executive secretary social welfare will follow-up with patient regarding placement.
[2016-10-18 20:01] VITALS: BP 126/77
[2016-10-18] MEDS: SENNOSIDES 8.6 MG TABLET PO SCH (21:13)
[2016-10-18] MEDS ORDERED: QUETIAPINE FUMARATE 100 MG TABLET PO SCH (22:00)
[2016-10-19] MEDS: PANTOPRAZOLE 40 MG TABLET.DR PO SCH (07:43)
[2016-10-19] MEDS: ACETAMINOPHEN W/ CODEINE#3 1 EA TABLET PO PRN ×2 (07:51→15:16)
--- NOTE | 2016-10-19 07:51 | NUR ---
administered tylenol cod #3 , per patient request chronic generalized pain 12/31, v/s taken bp- 147/71, p-64, continued monitoring.
[2016-10-19] MEDS: METOPROLOL TARTRATE 25 MG TABLET PO SCH ×2 (07:52→16:06)
[2016-10-19] MEDS: AMLODIPINE BESYLATE 10 MG TABLET PO SCH (07:52)
[2016-10-19] MEDS: DOCUSATE SODIUM 100 MG CAPSULE PO SCH ×2 (07:52→16:06)
[2016-10-19] MEDS: FLUTICASONE/VILANTEROL 1 EACH BLST.W.DEV IH SCH (07:53)
[2016-10-19 08:42] VITALS: BP 147/71
--- NOTE | 2016-10-19 14:24 | NUR ---
This social met with patient who has been very resistant to placement from assigned social services aide, Winter Schneider E/M ENGINEER. Pt. reluctantly agreed to accept one of the facilities accepting her. She is very tied into her storage unit and spends$76.00 per month on this. Client shows impaired judgement in her decision-making as she says she would rather be on the street than give up her storage. She will agree to interim placement. Please refer to discharge planning notes. Patient alleged that we are not taking care of her many medical needs on the unit. tommy De La Vega, Director of unit was notified of this complaint at 1100.
--- NOTE | 2016-10-19 15:16 | NUR ---
ADMINISTERED TYLENOL COD #3 PER PATIENT REQUEST CHRONIC GENERALIZED PAIN 12/31, V/ S STABLE BP - 134/76, P-69, CONTINUED MONITORING, ENCOURAGED TO INCREASE FLUID INTAKE.
[2016-10-19 16:16] VITALS: BP 135/66
[2016-10-19 20:00] VITALS: BP_SYST 136; BP_DIAS 63; BP_DIAS 65
[2016-10-19] MEDS: AMOX/CLAVULANATE 875 MG TABLET PO SCH (21:29)
[2016-10-19] MEDS: SENNOSIDES 8.6 MG TABLET PO SCH (21:35)
[2016-10-19] MEDS ORDERED: QUETIAPINE FUMARATE 25 MG TABLET PO SCH (22:00)
--- NOTE | 2016-10-19 22:00 | NUR ---
RN NOTES PT. REFUSED HER SENOKOT, PT STATED THAT SHE DOESN'T NEED IT
[2016-10-20] MEDS: ACETAMINOPHEN W/ CODEINE#3 1 EA TABLET PO PRN ×2 (03:23→10:33)
--- NOTE | 2016-10-20 03:28 | NUR ---
RN NOTES COMPLAINED OF GENERALIZED PAIN- TYLENOL WITH CODEINE GIVEN ORDERED, V/S STABLE
[2016-10-20 08:00] VITALS: BP 129/50
[2016-10-20] MEDS: FLUTICASONE/VILANTEROL 1 EACH BLST.W.DEV IH SCH (09:22)
[2016-10-20] MEDS: AMOX/CLAVULANATE 875 MG TABLET PO SCH (09:22)
[2016-10-20] MEDS: DOCUSATE SODIUM 100 MG CAPSULE PO SCH ×2 (09:22→17:00)
[2016-10-20] MEDS: PANTOPRAZOLE 40 MG TABLET.DR PO SCH (09:22)
[2016-10-20] MEDS: AMLODIPINE BESYLATE 10 MG TABLET PO SCH (09:26)
[2016-10-20] MEDS: METOPROLOL TARTRATE 25 MG TABLET PO SCH ×2 (09:26→17:00)
--- NOTE | 2016-10-20 10:33 | NUR ---
GPS/RN ADMINISTERED TYLENOL COD #3 FOR CHRONIC GENERALIZED PAIN 11/30, PER PATIENT REQUEST
--- NOTE | 2016-10-20 12:30 | NUR ---
GPS/RN CALLED EPIC EXCHANGE FOR DR ROCK FOR D/C ORDERS. PER SIX SIGMA BLACK TRAINER :MD WILL CALL BACK TO THE UNIT.
--- NOTE | 2016-10-20 14:00 | NUR ---
GPS/RN DR ROCK CALLED BACK AN WILL COME TO ASSESS THE PT BEFORE D/C. [facility]ED [facility] ON WILL CALL VIA DISPATCHER.
--- NOTE | 2016-10-20 15:46 | NUR ---
GPS/RN CALLED FOR REPORT TO MALAIKA HANNAH RN AT [phone]. PT REFUSED PICTURES TO BE TAKEN ON D/C REFUSED TO SIGN PAPERWORK. NO SI OR HI REPORTED AT THE TIME OF D/C. S AMBULANCE SCHEDULED FOR 2644
--- NOTE | 2016-10-20 15:46 | NUR ---
Patient's social media marketing analyst from [facility] Kendal Dick ([phone]) came to speak with the patient regarding placement at 9:00am. warehouse worker 2nd shift was able to convince the patient to agree to go to [place] [address] ([phone]). warehouse worker 2nd shift requested to be informed when patient is discharged as she will continue be her director of casework services/ social media marketing analyst and will follow the case.
[2016-10-20 16:01] VITALS: BP 129/67
--- NOTE | 2016-10-20 16:33 | NUR ---
Discharge Note: Patient will be discharged to [facility] [address] [facility] [address] ([phone]). Via [facility]. Patient does not have family to notify but her bench worker hollow handle Brenna Dick ([phone]) from [facility] in [place] has been notified. Patient was agreeable with the discharge plan. Patient denied suicidal and homicidal ideations. Patient agreed to follow-up with her psychiatrist Dr. Micha Castro ([phone]) and her psychologist Dr. Claudia Lloyd ([phone]) to discuss her opioid dependence. Patient was provided with referrals to the [facility] ([phone]). Patient was also provided referrals to [facility] [address] [place] [address] ([phone]) and encouraged to attend a walk in appointment for Friday September 23, 2016 from 9:00am -10:00 am . Patient was given resources for smoking cessation ([facility] [address] [facility] [address] Sunday 6:30 pm small room) Facilitated info to IDT team who are in agreement with discharge arrangement. The multidisciplinary exitcare form was done, printed, signed, and given to the patient.
--- NOTE | 2016-10-20 18:00 | NUR ---
GPS/RN PT LEFT [facility]IA [facility].
== END 2016-10-20 18:00 | DRG 885 ==
LOC: ER 14:38 → GPS 16:47
PROVIDERS: ADMIT Psychiatry & Neurology Psychiatry; ATTEND Internal Medicine
DX: F29 Unspecified psychosis not due to a substance or known physiological condition (principal); F03.91 Unspecified dementia, unspecified severity, with behavioral disturbance; F23 Brief psychotic disorder; E11.9 Type 2 diabetes mellitus without complications; E78.5 Hyperlipidemia, unspecified; I10 Essential (primary) hypertension; J44.9 Chronic obstructive pulmonary disease, unspecified; Z79.899 Other long term (current) drug therapy; M06.9 Rheumatoid arthritis, unspecified; Z86.19 Personal history of other infectious and parasitic diseases
CPT/HCPCS: 36415; 71010-TC; 80048-TC; 80053-TC; 80061-TC; 80076-TC; 80305; 81000-TC; 85025-TC; 87081-TC; 87086-TC; 87186-TC; A4606; G0480; Q0177; Z7610